=== PATIENT | male | born 1990 | race Caucasian/White ===

== ENCOUNTER 2021-03-28 10:37 | Emergency (ER) | payer BC, SELFPAY ==
[2021-03-28 10:54] VITALS: BP 155/66; PULSE 68; RESP 16; TEMP 36.7; O2SAT 97; BMI 27.3
[2021-03-28 11:00] VITALS: O2SAT 98
--- NOTE | 2021-03-28 11:01 | W.ED.DENTAL ---
HPI - Dental/Oral General: Chief complaint: Dental/Oral Stated complaint: dental pain Time Seen by Provider: 03/28/21 11:01 Source: patient Mode of arrival: ambulatory Limitations: no limitations History of Present Illness: HPI Narrative: Patient is a 30-year-old male who presents to ED today with complaint of left lower molar pain that he has had intermittently for several months but has been worse over the past several days. He is now noticed some mild left-sided facial swelling. He is not having any difficulty swallowing or controlling secretions. No rash. Has not seen a dentist in quite a long time. MD Complaint: tooth pain Teeth map: 1. severely decayed molar Onset (ago): day(s) Duration: constant Severity: severe Relieving factors: nothing Exacerbating factors: nothing Context: history of dental caries and poor dental care Associated symptoms: Reports no associated symptoms; Denies fever(s) or odynophagia Review of Systems Const: Denies: fever(s), chills, body aches, fatigue or malaise Eyes: Denies: change in vision, blurry vision, blind spots, photophobia, floaters or seeing flashes ENMT: Reports: dental pain; Denies: throat pain, uvular edema, enlarged tonsils, odynophagia, hoarseness, mouth pain, swelling of lips/tongue, oral sores or bleeding gums Card: Denies: chest pain Resp: Denies: dyspnea GI: Denies: abdominal pain, nausea or vomiting Musc: Denies: neck pain Skin/Breast: Denies: rash Neuro: Denies: headache(s) Physical Exam Const: COMMON NORMALS: no acute distress, average body habitus, patient oriented x3, no limitations, healthy appearing, alert and well nourished GENERAL APPEARANCE: cooperative ORIENTATION/CONSCIOUSNESS: Yes awake, Yes oriented to person, Yes oriented to place and Yes oriented to time HENMT: COMMON NORMALS: normocephalic, atraumatic, hearing grossly normal bilaterally, external ears normal, EAC's normal, TM's normal bilaterally, Normal external nose present, Normal nasal mucous membranes and turbinates present, moist oral mucous membranes, oropharynx normal and gingiva normal HEAD & SCALP: normal to inspection, normocephalic and atraumatic FACE & SINUS: normal facial exam and sinuses nontender NOSE: Normal external nose present and Normal nasal mucous membranes and turbinates present EXTERNAL EAR: Yes external ears normal EXTERNAL AUDITORY CANAL: EAC's normal TYMPANIC MEMBRANE: TM's normal bilaterally MOUTH: Normal oral and palatal mucosa present, lip normal and tongue normal TEETH & GINGIVA: Yes caries and Yes poor dentition THROAT: posterior oropharynx normal, tonsils normal and uvula midline; no uvular edema OTHER: no drainable abscess formation at this time; severe dental caries throughout oral cavity; tooth of concern is 17 that has severe dental decay Eye: COMMON NORMALS: Equal, round and reactive pupils present, EOMs intact bilaterally and conjunctivae normal GENERAL EYE: appearance normal, both eyes and all related structures CONJUNCTIVA: Yes conjunctivae normal PUPIL: Yes Equal, round and reactive pupils present Neck/C-Spine: COMMON NORMALS: full ROM, no lymphadenopathy and no meningeal signs Resp: COMMON NORMALS: normal respiratory effort Cardio: COMMON NORMALS: regular rate and regular rhythm RATE: regular rate RHYTHM: regular rhythm Neuro: DARIO COMA SCALE: document GCS findings [place] coma scale eye opening: Spontaneous Dario coma scale verbal response: Orientated [place] coma scale motor response: Obey commands [place] coma scale total score: 15 COMMON NORMALS: patient oriented x3 and CN's II-XII intact bilaterally SENSORIUM/ORIENTATION: Yes alert, Yes oriented to person, Yes oriented to place and Yes oriented to time MENINGEAL SIGNS: Yes no meningeal signs Skin: COMMON NORMALS: no rashes or lesions noted GENERAL SKIN EXAM: no rashes or lesions noted Course Vital Signs: Vital signs: Vital Signs Temperature 98.1 F 03/28/21 10:54 Pulse Rate 68 03/28/21 10:54 Respiratory Rate 16 03/28/21 10:54 Blood Pressure 155/66 03/28/21 10:54 Pulse Oximetry 98 03/28/21 11:00 MDM - Dental/Oral MDM Narrative: Medical decision making narrative: Given dental resource handout and stressed importance of following up with a dentist. He states Amoxicillin has worked better over [facility] previously so this will be prescribed. Discharge Plan Discharge Patient Disposition: Home Clinical Impression: Dental caries, Toothache Condition: Stable Prescriptions: New amoxicillin 500 mg capsule 500 mg PO TID 10 Days Qty: 30 RF: 0 Discharge Orders: Discharge ED (Routine); Ordered 03/28/21 Ordered By: Laine Greenberg Patient Instructions: Dental Caries (ED), Toothache (ED) Coding Level of Care Code ED Public Health Staff Nurse for Dianne Porter
== END 2021-03-28 11:23 | disposition home or self-care (01) ==
PROVIDERS: Emergency Provider Physician Assistant
DX: K02.9 Dental caries, unspecified (principal)
CPT/HCPCS: 99282

== ENCOUNTER 2021-04-14 17:01 | Emergency (ER) | payer BC, SELFPAY ==
[2021-04-14 17:36] VITALS: BP 135/76; PULSE 77; RESP 17; TEMP 36.8; O2SAT 97; BMI 27.8
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
[2021-04-14 20:00] VITALS: PULSE 84
[2021-04-14] MEDS: cephALEXin 500 mg Capsule PO (20:42)
[2021-04-14] MEDS: bacitracin ointment Pkt 1 EACH TOPICAL (20:43)
[2021-04-14] MEDS: HYDROcodone-acetaminophen 5-325 mg Tablet 1 TAB PO (20:43)
[2021-04-14 20:45] VITALS: BP 135/76
== END 2021-04-14 20:20 | disposition home or self-care (01) ==
PROVIDERS: Emergency Provider Nurse Practitioner Family
DX: S60.512A Abrasion of left hand, initial encounter (principal); S60.511A Abrasion of right hand, initial encounter; S60.312A Abrasion of left thumb, initial encounter; V28.0XXA Motorcycle driver injured in noncollision transport accident in nontraffic accident, initial encounter
CPT/HCPCS: 73130; 99283